=== PATIENT | female | born 1975 | race Caucasian/White ===

== ENCOUNTER → 2017-11-18 | Outpatient (CLI) | payer OTHER ==
--- NOTE | 2017-11-18 15:08 | MM ---
Reason for exam: screening (asymptomatic). Baseline mammogram. History: Patient is nulliparous. Physical Findings: Nurse did not find any significant physical abnormalities on exam. MG Screening Mammo w CAD Bilateral CC and MLO view(s) were taken. The breast tissue is heterogeneously dense. This may lower the sensitivity of mammography. No suspicious abnormality on the left breast. Focal asymmetry anterior depth lower outer quadrant on right breast. These results were verbally communicated with the patient and result sheet given to the patient on 11/18/17. ASSESSMENT: Incomplete: need additional imaging evaluation, BI-RAD 0 RECOMMENDATION: Special view mammogram of the right breast. If lesion persists on supplemental views, image directed ultrasound is recommended. [facility] will attempt to contact patient to return for supplemental views and ultrasound if indicated.
--- NOTE | 2017-11-18 15:10 | MM ---
Reason for exam: additional evaluation requested from abnormal screening. History: Patient is nulliparous. Physical Findings: Breast exam preformed at baseline screening. MG Work Up Mamm w CAD RT Spot compression CC, spot compression MLO, and spot compression LM view(s) were taken of the right breast. The breast tissue is heterogeneously dense. This may lower the sensitivity of mammography. The focal asymmetry improves on additional views and appears as fibroglandular tissue. These results were verbally communicated with the patient and result sheet given to the patient on 11/18/17. ASSESSMENT: Benign, BI-RAD 2 RECOMMENDATION: Return to routine screening mammogram schedule for both breasts.
== END | disposition home or self-care (01) ==
LOC: RADMAMWWP 14:14
PROVIDERS: ATTEND Internal Medicine
DX: Z12.31 Encounter for screening mammogram for malignant neoplasm of breast (principal); R92.8 Other abnormal and inconclusive findings on diagnostic imaging of breast
CPT/HCPCS: 77065; 77067

== ENCOUNTER → 2020-03-03 | Outpatient (CLI) | payer OTHER | END | disposition home or self-care (01) | LOC: LABWHC1 14:11 | PROVIDERS: ATTEND Internal Medicine | DX: Z20.828 Contact with and (suspected) exposure to other viral communicable diseases (principal) | CPT/HCPCS: U0003; C9803 ==

== ENCOUNTER → 2020-04-25 | Outpatient (CLI) | payer OTHER | END | disposition home or self-care (01) | LOC: LABWHC1 16:22 | PROVIDERS: ATTEND Nurse Practitioner Family | DX: Z20.828 Contact with and (suspected) exposure to other viral communicable diseases (principal) | CPT/HCPCS: U0003; C9803 ==

== ENCOUNTER → 2020-12-22 | Outpatient (CLI) | payer OTHER ==
--- NOTE | 2020-12-26 08:19 | MM ---
Reason for exam: screening (asymptomatic). Last mammogram was performed 3 years and 1 month ago. History: Patient is nulliparous. Physical Findings: A clinical breast exam by your physician is recommended on an annual basis and results should be correlated with mammographic findings. MG Screening Mammo w CAD Bilateral CC and MLO view(s) were taken. Prior study comparison: November 18, 2017, right breast MG work up mamm w CAD RT. November 18, 2017, bilateral MG screening mammo w CAD. The breast tissue is heterogeneously dense. This may lower the sensitivity of mammography. No significant changes when compared with prior studies. ASSESSMENT: Benign, BI-RAD 2 RECOMMENDATION: Routine screening mammogram of both breasts in 1 year.
== END | disposition home or self-care (01) ==
LOC: RADMAMWWP 09:37
PROVIDERS: ATTEND Internal Medicine
DX: Z12.31 Encounter for screening mammogram for malignant neoplasm of breast (principal)
CPT/HCPCS: 77067

== ENCOUNTER → 2021-12-27 | Outpatient (CLI) | payer OTHER ==
--- NOTE | 2021-12-28 15:50 | MM ---
Reason for Exam: Screening (asymptomatic). Last screening mammogram was performed 12 month(s) ago. Patient History: Menarche at age 15. Patient has no children. Risk Values: Rivka 5 year model risk: 0.9%. NCI Lifetime model risk: 10.7%. Prior Study Comparison: 11/18/2017 Bilateral Screening Mammogram, [facility]. 11/18/2017 Right Diagnostic Mammogram, [facility]. 12/22/2020 Bilateral Screening Mammogram, [facility]. Tissue Density: The breast tissue is heterogeneously dense. This may lower the sensitivity of mammography. Findings: Analyzed By CAD. Asymmetric nodular density upper-outer left breast zone B. Additional views are recommended. Right breast is free of nodule or distortion. No suspicious calcifications are present. Overall Assessment: Incomplete: need additional imaging evaluation, BI-RAD 0 Management: Diagnostic Mammogram of the left breast. A clinical breast exam by your physician is recommended on an annual basis and results should be correlated with mammographic findings. Electronically signed and approved by: Jeanmarie Cristina M.D. Radiologis
== END | disposition home or self-care (01) ==
LOC: RADMAMWWP 08:17
PROVIDERS: ATTEND Family Medicine
DX: Z12.31 Encounter for screening mammogram for malignant neoplasm of breast (principal)
CPT/HCPCS: 77067

== ENCOUNTER → 2022-01-03 | Outpatient (CLI) | payer OTHER ==
--- NOTE | 2022-01-03 10:58 | MM ---
Reason for Exam: Additional evaluation requested from abnormal screening. Last screening mammogram was performed less than 1 month ago. Patient History: Menarche at age 15. Patient has no children. Last menstrual period: 01/03/2022 Risk Values: Rivka 5 year model risk: 0.9%. NCI Lifetime model risk: 10.7%. Prior Study Comparison: 11/18/2017 Right Diagnostic Mammogram, [facility]. 12/22/2020 Bilateral Screening Mammogram, [facility]. 12/27/2021 Bilateral MG screening mammo w CAD, [facility]. Tissue Density: Left: The breast tissue is heterogeneously dense. This may lower the sensitivity of mammography. Findings: Analyzed By CAD. Nodular density noted measuring 12 mm upper outer quadrant 5 cm from the nipple left breast. Ultrasound is recommended. Overall Assessment: Incomplete: need additional imaging evaluation, BI-RAD 0 Management: Diagnostic Breast Ultrasound of the left breast. A clinical breast exam by your physician is recommended on an annual basis and results should be correlated with mammographic findings. This exam should not preclude additional follow-up of suspicious palpable abnormalities. Results were given to the patient verbally at the time of exam. Electronically signed and approved by: Jeanmarie Cristina M.D. Radiologis
--- NOTE | 2022-01-03 11:51 | USB ---
Reason for Exam: Additional evaluation requested from abnormal screening. Patient History: Menarche at age 15. Patient has no children. Risk Values: Rivka 5 year model risk: 0.9%. NCI Lifetime model risk: 10.7%. Prior Study Comparison: 11/18/2017 Right Diagnostic Mammogram, [facility]. 12/22/2020 Bilateral Screening Mammogram, [facility]. 12/27/2021 Bilateral MG screening mammo w CAD, [facility]. Findings: The upper outer quadrant of the left breast, the axilla of the left breast and the retroareolar of the left breast were scanned. Cluster of cysts noted at the left 2:00 position. Follow-up study is advised. No solid mass detected. Overall Assessment: Probably benign, BI-RAD 3 Management: Diagnostic Mammogram of the left breast in 6 months. A clinical breast exam by your physician is recommended on an annual basis and results should be correlated with mammographic findings. Electronically signed and approved by: Jeanmarie Cristina M.D. Radiologis
== END | disposition home or self-care (01) ==
LOC: RADMAMWWP 10:18
PROVIDERS: ATTEND Family Medicine
DX: R92.8 Other abnormal and inconclusive findings on diagnostic imaging of breast (principal)
CPT/HCPCS: 77065

== ENCOUNTER → 2022-02-09 | Outpatient (CLI) | payer OTHER ==
[2022-02-09 16:54] LABS: HCG,Quantitative Serum <3.0 (0.0-6.0); Luteinizing Hormone 3.8 mIU/mL
== END | disposition home or self-care (01) ==
LOC: LABWHC1 08:30
DX: Z00.00 Encounter for general adult medical examination without abnormal findings (principal)
CPT/HCPCS: 36415; 83002; 84144; 84702

== ENCOUNTER → 2022-08-08 | Outpatient (CLI) | payer OTHER ==
--- NOTE | 2022-08-08 07:34 | MM ---
Reason for Exam: Follow-up at short interval from prior study. Last screening mammogram was performed 7 month(s) ago. Patient History: Menarche at age 15. Patient has no children. Last menstrual period: 07/31/2022 Risk Values: Rivka 5 year model risk: 0.9%. NCI Lifetime model risk: 10.6%. Tissue Density: The breast tissue is heterogeneously dense. This may lower the sensitivity of mammography. Findings: Analyzed By CAD. Areas of asymmetric density at anterior depth on the MLO view remain unchanged. The previous 2-3 o'clock focal asymmetry appears to have resolved. Ultrasound reassessment recommended. Overall Assessment: Incomplete: need additional imaging evaluation, BI-RAD 0 Management: Diagnostic Breast Ultrasound of the left breast. Electronically signed and approved by: Marques Soriano M.D. Radiologist
--- NOTE | 2022-08-08 08:10 | USB ---
Reason for Exam: Additional evaluation requested from abnormal screening. Patient History: Menarche at age 15. Patient has no children. Risk Values: Rivka 5 year model risk: 0.9%. NCI Lifetime model risk: 10.6%. Technique: Method: Targeted. Prior Study Comparison: 12/22/2020 Bilateral Screening Mammogram, [facility]. 12/27/2021 Bilateral MG screening mammo w CAD, [facility]. 01/03/2022 Left MG work up mamm w CAD LT, [facility]. Findings: The upper outer quadrant of the left breast, the axilla of the left breast and the retroareolar of the left breast were scanned. Targeted ultrasound left breast upper outer quadrant 12:00 to 3:00 including the subareolar region and axilla. The previous 2:00 suspicious cluster has resolved. No other solid or cystic lesion or axillary lymphadenopathy. Overall Assessment: Negative, BI-RAD 1 Management: Screening Mammogram of both breasts in 5 months. 1. Patient should continue monthly self breast exams. 2. A clinical breast exam by your physician is recommended on an annual basis. 3. This exam should not preclude additional follow-up of suspicious palpable abnormalities. Electronically signed and approved by: Marques Soriano M.D. Radiologist
== END | disposition home or self-care (01) ==
LOC: RADMAMWWP 07:00
PROVIDERS: ATTEND Obstetrics & Gynecology
DX: R92.8 Other abnormal and inconclusive findings on diagnostic imaging of breast (principal)
CPT/HCPCS: 77061; 77065

== ENCOUNTER 2022-11-22 04:36 | Emergency (ER) | payer OTHER ==
[2022-11-22 04:45] VITALS: TEMP 98.2
[2022-11-22] MEDS ORDERED: MORPHINE SULFATE 4 MG/ML SYRINGE IV STA ×2 (05:01→06:34)
[2022-11-22] MEDS ORDERED: PROPOFOL 10 MG/ML 20 ML VIAL IV ONE (05:01)
--- NOTE | 2022-11-22 05:33 | ED ---
General Adult HPI - General Chief complaint: Extremity Injury, Lower Stated complaint: Ankle Injury Time Seen by Provider: 11/22/22 04:40 Source: EMS Mode of arrival: EMS Limitations: no limitations - History of Present Illness Initial comments: Dictation was produced using [employer] dictation software. please excuse any grammatical, word or spelling errors. Chief Complaint: 47-year-old female presents with ankle injury History of Present Illness: She is 47-year-old female presents emergency Department with right ankle injury. She missed a step and landed her to pop and immediately felt right ankle pain. Patient has a history of orthopedic issues. Denies any medical problems. She has history of one kidney. Denies any numbne ss that foot The ROS documented in this emergency department record has been reviewed and confirmed by me. Those systems with pertinent positive or negative responses have been documented in the HPI. All other systems are other negative and/or noncontributory. - Related Data Allergies Allergy/AdvReac Type Severity Reaction Status Date / Time No Known Allergies Allergy Verified 11/22/22 04:45 Review of Systems ROS Statement: Those systems with pertinent positive or pertinent negative responses have been documented in the HPI. ROS Other: All systems not noted in ROS Statement are negative. Past Medical History Past Medical History: Renal Disease General Exam - General Exam Comments Initial Comments: PHYSICAL EXAM: General Impression: Alert and oriented x3, acute distress secondary to pain HEENT: Normocephalic atraumatic, extra-ocular movements intact, pupils equal and reactive to light bilaterally, mucous membranes moist. Cardiovascular: Heart regular rate and rhythm Chest: Able to complete full sentences, no retractions, no tachypnea Musculoskeletal: Pulses present and equal in all extremities, no peripheral edema Motor: no focal deficits noted Neurological: CN II-XII grossly intact, no focal motor or sensory deficits noted Skin: Intact with no visualized rashes Psych: Normal affect and mood Right ankle: No gross deformity with lateral displacement of the right foot in relation to the tibia. No exposed bone or skin defect Limitations: no limitations Course Vital Signs 11/22/22 11/22/22 11/22/22 04:41 05:12 05:15 Temperature 98.2 F Pulse Rate 74 64 58 L Respiratory 18 18 18 Rate Blood Pressure 118/80 105/68 106/63 O2 Sat by Pulse 97 100 100 Oximetry 11/22/22 11/22/2223 05:16 05:31 05:46 Temperature Pulse Rate 57 L 61 58 L Respiratory 16 18 16 Rate Blood Pressure 107/82 109/69 125/98 O2 Sat by Pulse 100 100 100 Oximetry 11/22/22 06:00 Temperature Pulse Rate 58 L Respiratory 20 Rate Blood Pressure 124/72 O2 Sat by Pulse 98 Oximetry - Reevaluation(s) Reevaluation #1: 11/22/22 06:05 Case was discussed with Dr. Kumar [facility] for orthopedic surgery states that he would like the patient be discharged follow-up in his office at 8:00 AM today. Patient reevaluated bedside with improved condition. 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, Site Site: right ankle Final Confirmation: Procedure - Orthopedic Fracture Reduction Fracture #1 Consent Obtained: verbal consent, written consent Side: right Fracture Reduction Location: other (ankle) Analgesia: procedural sedation Technique: direct manipulation Post Reduction X-rays Demonstrate: anatomical reduction Post-Reduction Neuro Exam: intact Post-Reduction Vascular Exam: intact Splint Applied: Yes Patient Tolerated Procedure: well - Procedural Sedation *Procedural Sedation Start Time: 05:12 *Procedural Sedation Stop Time: 05:15 *Previous Adverse Reaction to Anesthesia/Sedation?: No * Testing Complete?: No Reason Test Not Complete:: Emergent Situation *ASA Class: I *Mallampati Airway Score: 2 Preparation: monitor and storage bin tender applied, pulse oximeter, capnometry used, supplemental O2 applied IV Propofol Dose (mgs): 50 Complications: none Patient Tolerated Procedure: well Medical Decision Making - Medical Decision Making Was pt. sent in by a medical professional or institution (, PA, ICT TEACHER, urgent care, hospital, or long term...) When possible be specific @ -No Did you speak to anyone other than the patient for history (EMS, parent, family, police, friend...)? What history was obtained from this source @ -EMS Did you review nursing and triage notes (agree or disagree)? Why? @ -I reviewed and agree with nursing and triage notes Were old charts reviewed (outside hosp., previous admission, EMS record, old EKG, old radiological studies, urgent care reports/EKG's, long term records)? Report findings @ -No old charts were reviewed Differential Diagnosis (chest pain, altered mental status, abdominal pain women, abdominal pain men, vaginal bleeding, musculoskeletal, weakness, fever, dyspnea, syncope, headache, dizziness, GI bleed, back pain, seizure, CVA, palpatations, mental health)? @ -not applicable EKG interpreted by me (3pts min.). @ -None done X-rays interpreted by me (1pt min.). @ -Initial right ankle x-ray showed fracture dislocation. Repeat postreduction x-ray shows improved alignment CT interpreted by me (1pt min.). @ -None done U/S interpreted by me (1pt. min.). @ -None done What testing was considered but not performed or refused? (CT, X-rays, U/S, labs)? Why? @ -None What meds were considered but not given or refused? Why? @ -None Did you discuss the management of the patient with other professionals (professionals i.e. , PA, ICT TEACHER, lab, RT, psych nurse, social media community manager, cribber, teacher, purchasing officer, case briefer)? Give summary @ -See above. X-rays clinical presentation discussed with Dr. Kumar Was smoking cessation discussed for >3mins.? @ -No Was critical care preformed (if so, how long)? @ -No Were there social determinants of health that impacted care today? How? (Homelessness, low income, unemployed, alcoholism, drug addiction, transportation, low edu. Level, literacy, decrease access to med. care, retirement, rehab)? @ -No Was there de-escalation of care discussed even if they declined (Discuss DNR or withdrawal of care, Hospice)? DNR status @ -No What co-morbidities impacted this encounter? (DM, HTN, Smoking, COPD, CAD, Cancer, CVA, ARF, Chemo, Hep., AIDS, mental health diagnosis, sleep apnea, morbid obesity)? @ -None Was patient admitted / discharged? Hospital course, mention meds given and route, prescriptions, significant lab abnormalities, going to OR and other pertinent info. @ -47-year-old female presents to the emergency department with fracture dislocation of the right ankle. All signs upon arrival are within acceptable limits. Patient underwent procedural sedation for fracture dislocation reduction. Case discussed with orthopedic surgery. He would like to see patient in the office at 8:00 AM Undiagnosed new problem with uncertain prognosis? @ -No Drug Therapy requiring intensive monitoring for toxicity (Heparin, Nitro, Insulin, Cardizem)? @ -No Were any procedures done? @ -See above Diagnosis/symptom? Acute, or Chronic, or Acute on Chronic? Uncomplicated (without systemic symptoms) or Complicated (systemic symptoms)? @ -1. Fracture dislocation to the right ankle Side effects of treatment? @ -No Exacerbation, Progression, or Severe Exacerbation? @ -No Poses a threat to life or bodily function? How? (Chest pain, [place], [place], pneumonia, PE, COPD, DKA, ARF, appy, cholecystitis, CVA, Diverticulitis, Homicidal, Suicidal, threat to staff... and all critical care pts) @ -yes Disposition Clinical Impression: Ankle fracture Disposition: HOME SELF-CARE Condition: Fair Instructions (If sedation given, give patient instructions): Ankle Fracture (ED), Moderate Sedation (ED) Additional Instructions: Go directly to Dr. Kumar's office. He would like to see you at 8an Is patient prescribed a controlled substance at d/c from ED?: No Referrals: Carl Kumar MD [STAFF PHYSICIAN] - 11/22/22 8:00 am Time of Disposition: 06:08
[2022-11-22 06:18] VITALS: RESP 18
[2022-11-22 06:51] VITALS: BP 106/66; PULSE 60
--- NOTE | 2022-11-22 07:06 | XR ---
EXAMINATION TYPE: XR ankle limited RT DATE OF EXAM: 11/22/2022 5:36 AM INDICATION: Patient age:Female; 47 years old; Reason for study: post reduction; COMPARISON: Prereduction TECHNIQUE: The right ankle is imaged in frontal, lateral and oblique projections. FINDINGS/IMPRESSION: : Interval reduction with splint in place. There is improved anatomic alignment of the tibia and fibula fractures. No new fractures. Soft tissue swelling around the ankle. Dislocation has been reduced.
--- NOTE | 2022-11-22 07:10 | XR ---
EXAMINATION TYPE: XR ankle limited RT DATE OF EXAM: 11/22/2022 4:57 AM INDICATION: Patient age:Female; 47 years old; Reason for study: ankle injury; COMPARISON: None TECHNIQUE: The right ankle is imaged in frontal, lateral and oblique projections. FINDINGS/IMPRESSION: Fracture dislocation involving the distal right tibia and fibula with posterior lateral dislocation o f the ankle mortise. Comment fracture of the distal fibula and fractures involving the tibia. There i s soft tissue swelling.
== END 2022-11-22 06:51 | disposition home or self-care (01) ==
LOC: EC 04:36
DX: S82.831A Other fracture of upper and lower end of right fibula, initial encounter for closed fracture (principal); W10.9XXA Fall (on) (from) unspecified stairs and steps, initial encounter
CPT/HCPCS: 73600; 99284; 96374; 96375; 96376; 27840; L4350; J2270; J2704

== ENCOUNTER 2022-11-29 10:00 | Day surgery (SDC) | payer OTHER ==
[2022-11-26 14:35] VITALS: BMI 22.9
[~2022-11-29 10:00] MED LIST: DEXAMETHASONE SOD PHOSPHATE 4 MG/ML 1 ML VIAL IV ONE; HYDROmorphone 0.5 MG/0.5 ML SYRINGE IVP PRN; LACTATED RINGERS 1,000 ML IV SCH; MIDAZOLAM 2 MG/2 ML VIAL IV PRN; ONDANSETRON 4 MG/2 ML VIAL IVP ONE; SCOPOLAMINE 1 MG/72 HR PATCH TRANSDERM ONE
[2022-11-29] MEDS ORDERED: fentaNYL (PF) 50 MCG/ML 2 ML AMP IVP ONE (10:57)
[2022-11-29] MEDS ORDERED: MIDAZOLAM 2 MG/2 ML VIAL IVP ONE (10:57)
[2022-11-29] MEDS ORDERED: DEXAMETHASONE SOD PHOSPHATE 4 MG/ML 1 ML VIAL ONE (11:08)
[2022-11-29] MEDS ORDERED: fentaNYL (PF) 50 MCG/ML 2 ML AMP ONE (11:08)
[2022-11-29] MEDS ORDERED: PROPOFOL 10 MG/ML 20 ML VIAL IV ONE (11:08)
[2022-11-29] MEDS ORDERED: LIDOCAINE 2% INJ 20 MG/ML (2 ML VIAL) ONE (11:08)
[2022-11-29] MEDS ORDERED: ROPIVACAINE 5 MG/ML 30 ML VIAL ONE (11:08)
[2022-11-29] MEDS ORDERED: ePHEDrine 50 MG/ML 1 ML VIAL ONE (11:08)
[2022-11-29] MEDS ORDERED: PHENYLEPHRINE-0.9% NACL SYG 1,000 MCG/10 ML SYRINGE ONE (11:08)
[2022-11-29] MEDS ORDERED: SUCCINYLCHOLINE CHLORIDE 200 MG/10 ML VIAL IV ONE (11:08)
[2022-11-29] MEDS ORDERED: ceFAZolin 1,000 MG in SODIUM CHLORIDE 0.9% 1,000 ML IRRIGATION ONE (11:27)
--- NOTE | 2022-11-29 11:45 | P.ANPRN ---
Procedure Note - Anesthesia - Nerve Block Performed Right Adductor Canal Single Time Out Performed: Yes Date of Procedure: 11/29/22 Procedure Start Time: 10:56 Procedure Stop Time: 11:02 Location of Patient: PreOp Indication: Acute Post-Operative Pain, Requested by Surgeon Sedation Type: Sedate with meaningful contact maintained Preparation: Sterile Prep, Sterile Dressing Position: Supine Catheter: None Needle Types: Facet Needle Gauge: 20 Ultrasound used to visualize needle placement: Yes Ultrasound used to observe medication spread: Yes Injectate: 0.5% Ropivacaine (see comment for volume) (10 ml + decadron 2 mg) Blood Aspirated: No Pain Paresthesia on Injection Noted: No Resistance on Injection: Normal Image Stored and Saved: Yes Events: Uneventful and Well Tolerated Right Popliteal Single Time Out Performed: Yes Date of Procedure: 11/29/22 Procedure Start Time: 11:03 Procedure Stop Time: 11:06 Location of Patient: PreOp Indication: Acute Post-Operative Pain, Requested by Surgeon Sedation Type: Sedate with meaningful contact maintained Preparation: Sterile Prep, Sterile Dressing Position: Supine Catheter: None Needle Types: Facet Needle Gauge: 20 Ultrasound used to visualize needle placement: Yes Ultrasound used to observe medication spread: Yes Injectate: 0.5% Ropivacaine (see comment for volume) (20 ml + decadron 2 mg) Blood Aspirated: No Pain Paresthesia on Injection Noted: No Resistance on Injection: Normal Image Stored and Saved: Yes Events: Uneventful and Well Tolerated
--- NOTE | 2022-11-29 13:13 | XR ---
EXAMINATION TYPE: XR ankle limited RT DATE OF EXAM: 11/29/2022 COMPARISON: NONE TECHNIQUE: 4 views submitted HISTORY: Post op FINDINGS: There is intraoperative surgical changes compatible with open reduction internal fixation of fracture s of the tibia and fibula. IMPRESSION: 1. See above
--- NOTE | 2022-11-29 13:14 | FL ---
EXAMINATION TYPE: FL guidance operating room DATE OF EXAM: 11/29/2022 HISTORY: Fluoroscopy time Total dose area product (DAP) in uGy*m?, mGy*cm? (or similar): 2.181 IMPRESSION: 1. Fluoroscopy time.
[2022-11-29 13:35] VITALS: TEMP 97.1
--- NOTE | 2022-11-29 14:15 | P.OP ---
Date of Procedure: 11/29/22 Preoperative Diagnosis: Displaced trimalleolar fracture right ankle Ruptured syndesmosis right ankle Postoperative Diagnosis: 1 same 2 same Procedure(s) Performed: 1. Open reduction with internal fixation right trimalleolar ankle fracture 2. Open repair syndesmosis right ankle Implants: Arthrex titanium ankle fracture plates: Posterior lateral malleolar plate, posterior malleolus plate, 4.0 cannulated screws medial malleolus Anesthesia: GETA Estimated Blood Loss (ml): 30 Pathology: none sent Condition: stable Disposition: PACU Description of Procedure: Prior to the patient being brought to the operating room, anesthesia administered nerve block on the right lower extremity. Then the patient brought into the operating room. Timeout was taken to confirm correct patient identifiers, correct laterally surgery, and correct procedure. When the staff in the room were in agreement with the timeout, the patient was placed under general anesthesia. The patient is a rolled onto the operating table in the prone position. The tourniquet was placed on the right thigh. Then the right leg was prepped and draped usual manner. The leg was exsanguinated and tourniquet inflated to 250 motors mercury. Attention was directed over the posterior lateral ankle between the peroneal tendons and Achilles tendon. Incision was made starting at superior border the calcaneus. It was deepened down to the saphenous tissue careful to identify, avoid, and retract any neurovascular structures and cauterize any bleeding vessels. Dissection was carried down to the fascia overlying deep posterior muscle compartment. The fascia was incised and then the septum between the muscles muscles was divided and retracted medially and laterally. This allowed for exposure the posterior aspect of the weightbearing surface of the tibia. Soft tissue and hematoma were evacuated from between the fracture fragments. Under live fluoroscopy a bone hook was used to reduce the fracture, and once anatomically reduced, a wire was placed through the fracture fragment into the tibia to maintain alignment. A posterior malleolar plate was then positioned over the fracture and adjusted under live fluoroscopy. Once position of the plate was satisfactory both on AP and lateral views, temporary fixation was used to hold the plate in place. The screw was placed through the plate proximal to the fracture to compress the plate against the tibia and act as anti-glide mechanism for the fracture. Fluoroscopy confirmed the proper positioning of the plate and screw as well as anatomic reduction of the fracture fragment. 2 interfragmentary screws were placed through the plate at the most distal aspect from posterior to anterior, taking care to not enter the ankle joint. The screws had a firm hold on the bone and compressed the fracture well. Fluoroscopy confirmed near anatomic alignment of the fracture and maintain contour the ankle joint. Then attention was directed the posterior aspect lateral malleolus. The peroneal tendons were carefully dissected off the posterior aspect of the lateral malleolus and fibula. The fracture was identified and hematoma and soft tissue were removed. The fracture was manipulated and aligned and then temporarily fixated. Fluoroscopy confirmed the realignment of the fracture and restore length of the fibula. A posterior lateral malleolar plate was positioned and adjusted under fluoroscopy until it was properly aligned. Was then temporarily fixated distally and proximally. Proximal locking screws were placed first and then distal locking and nonlocking screws were placed second. Final fluoroscopic imaging showed anatomic alignment of the lateral malleolar fracture with proper placement of the hardware. Attention directed over the left medial malleolus where a curvilinear incision was made over the area of the fracture. His deepened down the saphenous tissue careful to identify, avoid, and retract any neurovascular structures cauterize any bleeding vessels. The fracture fragment was easily identified and any interposing hematoma or soft tissue was removed. The wound is then thoroughly irrigated with antibiotic saline. The fracture was aligned and held in place with a bone clamp. Fluoroscopy confirmed the proper alignment of the medial malleolar fragment. Guidewires for 4.0 cannulated screws were inserted at the tip of the medial malleolus and advanced on an upward and lateral ankle into the tibia. Fluoroscopy confirmed the proper reduction trajectory of the screws as well as maintain alignment of the fracture. Drilling through the distal fragment was done and then a 4.0 cancellous screw was inserted across each wire and advanced and tightened until a compressed the fracture. Fluoroscopic imaging showed anatomic alignment the medial malleolar fracture in AP and lateral views. The ankle was taken through stress testing while under live fluoroscopy. There was significant gapping in the stability of the syndesmosis. Therefore the decision for syndesmotic repair was made. The plate on the posterior lateral malleolus had a hole and it does elevated for syndesmotic fixation. A guidewire for a tight rope was then placed through that hole and advanced from lateral to medial with slight anterior angulation. Fluoroscopy confirmed the proper position of the guidewire in AP and lateral views. Overdrill it was done until the medial cortex of the tibia was breached. The wire drill removed and then the tight rope anchor was inserted until the button was clear to the medial tibial cortex. The button was then deployed and tension was placed on the suture to lie the button flat against the tibial cortex. A large periarticular clamp was then used to reduce the the syndesmosis while holding the ankle maximally dorsiflexed. With the ankle still in maximum dorsiflexion the lateral button for the tight rope was then tied down to the plate and tightened until firm. Live fluoroscopy was repeated, and there was no longer any instability at the syndesmosis. The suture for the tight rope was then cut and all wounds were thoroughly irrigated with antibiotic saline. Deep closure of the posterior incision was done with 0 Vicryl. Subcu closure done for Monocryl. Skin closure done with anderson. The medial incision was closed with 4-0 Monocryl the subcutaneous layer and anderson at the skin. An Arthrex jumpstart dressing was placed over both incisions. A dry sterile dressings applied to the ankle. The tourniquet was released capillary refill return to all digits on the foot. The patient was then placed in a well-padded, well molded plaster posterior mold/sugar tong splint. The ankle was held in neutral alignment until the splint was dried. The patient was then rolled into the supine position on the transfer table. Anesthesia was reversed and she was taken recovery with vital signs stable.
[2022-11-29 14:36] VITALS: RESP 18
[2022-11-29] MEDS ORDERED: ONDANSETRON 4 MG/2 ML VIAL ONE (16:15)
[2022-11-29] MEDS ORDERED: ONDANSETRON 4 MG/2 ML VIAL IVP ONE (16:20)
[2022-11-29 16:51] VITALS: BP 99/63; PULSE 68
== END 2022-11-29 16:52 | disposition home or self-care (01) ==
LOC: OR 10:00
PROVIDERS: ATTEND Podiatrist
DX: S82.851A Displaced trimalleolar fracture of right lower leg, initial encounter for closed fracture (principal); S93.491A Sprain of other ligament of right ankle, initial encounter; W13.9XXA Fall from, out of or through building, not otherwise specified, initial encounter; K21.9 Gastro-esophageal reflux disease without esophagitis; Z79.1 Long term (current) use of non-steroidal anti-inflammatories (NSAID); G89.18 Other acute postprocedural pain
CPT/HCPCS: 27822; 27829; 64447; 64445; 84703; 73600; C1713; J2250; J0330; J1100; J0690 ×2; J2405; J3010; J2795; J2704; J1170; J2001

== ENCOUNTER → 2023-04-17 | Outpatient (CLI) | payer OTHER ==
--- NOTE | 2023-04-18 13:52 | MM ---
Reason for Exam: Screening (asymptomatic). Last screening mammogram was performed 8 month(s) ago. Patient History: Menarche at age 15. Patient has no children. Risk Values: Rivka 5 year model risk: 0.9%. NCI Lifetime model risk: 10.6%. Prior Study Comparison: 12/27/2021 Bilateral MG screening mammo w CAD, [facility]. 01/03/2022 Left MG work up mamm w CAD LT, [facility]. 08/08/2022 Bilateral MG 3D diag mammo w/cad ELIZABETH, [facility]. Tissue Density: The breast tissue is heterogeneously dense. This may lower the sensitivity of mammography. Findings: Analyzed By CAD. Left breast: There is no suspicious group of microcalcifications or new suspicious mass. Right breast: Focal asymmetry 2.2 cm from nipple and slightly lateral anterior depth measuring 11 mm on CC view and 3.0 cm from nipple measuring 10 mm at inferior MLO view. Overall Assessment: Incomplete: need additional imaging evaluation, BI-RAD 0 Management: Diagnostic Breast Ultrasound of the right breast. [facility] will attempt to contact patient to return for supplemental views and ultrasound if indicated. Patient should continue monthly self-breast exams. A clinical breast exam by your physician is recommended on an annual basis. This exam should not preclude additional follow-up of suspicious palpable abnormalities. Note on Rivka scores and lifetime risk: 1. A Rivka score greater than 3% is considered moderate risk. If this is the case, consider specialist referral to assess eligibility for a risk reducing agent. 2. If overall lifetime risk for the development of breast cancer is 20% or higher, the patient may qualify for future screening with alternating mammogram and breast MRI. Electronically signed and approved by: Jose Juan Dong DO
== END | disposition home or self-care (01) ==
LOC: RADMAMWWP 08:26
PROVIDERS: ATTEND Family Medicine
DX: Z12.31 Encounter for screening mammogram for malignant neoplasm of breast (principal)
CPT/HCPCS: 77063; 77067

== ENCOUNTER → 2023-04-23 | Outpatient (CLI) | payer OTHER ==
--- NOTE | 2023-04-23 14:44 | USB ---
Reason for Exam: Additional evaluation requested from abnormal screening. Patient History: Menarche at age 15. Patient has no children. Risk Values: Rivka 5 year model risk: 0.9%. NCI Lifetime model risk: 10.6%. Technique: Method: Targeted. Prior Study Comparison: 01/03/2022 Left MG work up mamm w CAD LT, [facility]. 08/08/2022 Bilateral MG 3D diag mammo w/cad ELIZABETH, [facility]. 04/17/2023 Bilateral MG 3D screening mammo w/cad, [facility]. Findings: The lateral section of the breast of the right breast, the axilla of the right breast and the retroareolar of the right breast were scanned. Pattern appears stable. Focal asymmetry remains subareolar right breast. Ultrasound evaluation. No suspicious groups of microcalcifications, spiculated or lobular masses, architectural distortion or other secondary signs of malignancy are mammographically apparent. Overall Assessment: Incomplete: need additional imaging evaluation, BI-RAD 0 Management: Diagnostic Breast Ultrasound of the right breast. A negative mammogram report should not preclude additional follow up of suspicious palpable abnormalities. Patient should continue monthly self breast exam. A clinical breast exam by your physician is recommended on an annual basis and results should be correlated with mammographic findings. Electronically signed and approved by: Zelalem Yancey D.O. Radiologis
== END | disposition home or self-care (01) ==
LOC: RADUSWWP 13:38
PROVIDERS: ATTEND Family Medicine
DX: R92.8 Other abnormal and inconclusive findings on diagnostic imaging of breast (principal)

== ENCOUNTER 2023-04-25 08:15 | Day surgery (SDC) | payer OTHER ==
[2023-04-24 10:13] VITALS: BMI 23.9
[2023-04-25] MEDS ORDERED: LACTATED RINGERS 1,000 ML IV SCH (08:27)
[2023-04-25 08:56] VITALS: TEMP 97.9
[2023-04-25] MEDS ORDERED: ONDANSETRON 4 MG/2 ML VIAL ONE (08:58)
[2023-04-25] MEDS ORDERED: PROPOFOL 10 MG/ML 20 ML VIAL IV ONE (08:59)
[2023-04-25] MEDS ORDERED: LIDOCAINE 1% INJ 10MG/ML (20 ML MDV) ONE (08:59)
--- NOTE | 2023-04-25 09:29 | P.PCN ---
Date of Procedure: 04/25/23 Procedure(s) Performed: Brief history: Patient is a pleasant 47-year-old white female scheduled for an elective upper endoscopy as well as colonoscopy as a part of evaluation of intermittent dysphagia to solids and liquids for the last 6 months duration and screening for colon cancer Procedure performed: Esophagogastroduodenoscopy with biopsy Colonoscopy Preoperative diagnosis: Intermittent Dysphagia to solids Screening for colon cancer Anesthesia: MAC Procedure: After informed consent was obtained from the patient was brought into the endoscopy unit and IV sedation was administered by anesthesia under continuous monitoring. Initially upper endoscopy was done. The Olympus GF 160 video endoscope was inserted inserted into the mouth and esophagus intubated without any difficulty and was gradually advanced into the stomach and duodenum and carefully examined. The bulb and second part of the duodenum appeared normal. The scope was then withdrawn into the stomach adequately insufflated with air and upon careful examination the antrum had mild gastritis. Mucosa of the body, cardia and fundus appeared normal. The scope was then withdrawn into the esophagus. The GE junction was located at 40 cm to the incisors. It appeared regular with no erythema erosions or ulcerations. Rest of the esophagus appeared normal. There was no evidence of esophageal stricture. Multiple biopsies were done from mid and distal esophagus to rule out eosinophilic esophagitis and the patient tolerated the procedure well. At this time the patient continued to remain sedation. Initial digital rectal examination was normal. Olympus CF 160 video colonoscope was then inserted into the rectum and gradually advanced to the cecum without any difficulty. Careful examination was performed as the scope was gradually being withdrawn. The prep was excellent. The cecum, ascending colon, transverse colon, descending colon, sigmoid colon and rectum appeared normal. Retroflexion was performed in the rectum and no lesions were noted. Patient tolerated the procedure well. Impression: 1. Upper endoscopy revealed normal-appearing esophagus with no evidence of esophagitis or esophageal stricture status post multiple biopsies to rule out years of age esophagitis and mild antral gastritis and mild gastritis 2. Colonoscopy was within normal limits with no evidence of colitis or colorectal neoplasia Recommendations: Findings of this examination were discussed with the patient as well as her family. She was advised to follow with the biopsy results.. Recommend repeat colonoscopy in 10 years.
[2023-04-25 09:47] VITALS: BP 112/74; PULSE 68; RESP 16
== END 2023-04-25 10:12 | disposition home or self-care (01) ==
LOC: ORWHC2ENDO 08:15
PROVIDERS: ATTEND Internal Medicine Gastroenterology
DX: Z12.11 Encounter for screening for malignant neoplasm of colon (principal); K21.00 Gastro-esophageal reflux disease with esophagitis, without bleeding; K29.50 Unspecified chronic gastritis without bleeding; F12.90 Cannabis use, unspecified, uncomplicated; Z79.899 Other long term (current) drug therapy
CPT/HCPCS: 88305; 45378; 43239; J2001; J2704

== ENCOUNTER → 2023-10-23 | Outpatient (CLI) | payer OTHER ==
--- NOTE | 2023-10-23 09:32 | MM ---
Reason for Exam: Follow-up at short interval from prior study. Last screening mammogram was performed 7 month(s) ago. Patient History: Menarche at age 15. Patient has no children. Last menstrual period: 10/18/2023 Risk Values: Rivka 5 year model risk: 0.9%. NCI Lifetime model risk: 10.5%. Prior Study Comparison: 01/03/2022 Left MG work up mamm w CAD LT, [facility]. 08/08/2022 Bilateral MG 3D diag mammo w/cad ELIZABETH, [facility]. 04/17/2023 Bilateral MG 3D screening mammo w/cad, [facility]. Tissue Density: Right: There are scattered areas of fibroglandular density. Findings: Analyzed By CAD. The questioned area of focal asymmetry anterior depth right breast has not persisted. No significant mass, suspicious microcalcification, or other discrete abnormality is seen. Overall Assessment: Benign, BI-RAD 2 Management: Screening Mammogram of both breasts in 6 months. Back on schedule. Results were given to the patient verbally at the time of exam. Patient should continue monthly self-breast exams. A clinical breast exam by your physician is recommended on an annual basis. This exam should not preclude additional follow-up of suspicious palpable abnormalities. Note on Rivka scores and lifetime risk: 1. A Rivka score greater than 3% is considered moderate risk. If this is the case, consider specialist referral to assess eligibility for a risk reducing agent. 2. If overall lifetime risk for the development of breast cancer is 20% or higher, the patient may qualify for future screening with alternating mammogram and breast MRI. Electronically signed and approved by: Marques Soriano M.D. Radiologist
== END | disposition home or self-care (01) ==
LOC: RADMAMWWP 09:08
PROVIDERS: ATTEND Family Medicine
DX: R92.321 Mammographic fibroglandular density, right breast (principal)
CPT/HCPCS: 77061; 77065

== ENCOUNTER 2024-05-07 09:31 | Day surgery (SDC) | payer OTHER ==
[~2024-05-07 09:31] MED LIST changes: -DEXAMETHASONE SOD PHOSPHATE 4 MG/ML 1 ML VIAL IV ONE; -LACTATED RINGERS 1,000 ML IV SCH; -MIDAZOLAM 2 MG/2 ML VIAL IV PRN; -ONDANSETRON 4 MG/2 ML VIAL IVP ONE; -SCOPOLAMINE 1 MG/72 HR PATCH TRANSDERM ONE
[2024-05-07] MEDS: IV FLUID CONTINUATION 1,000 ML IV ONE ×2 (09:50→15:04)
[2024-05-07] MEDS: LACTATED RINGERS 1,000 ML IV SCH (10:27)
[2024-05-07] MEDS: ONDANSETRON 4 MG/2 ML VIAL IVP ONE (10:27)
[2024-05-07] MEDS: DEXAMETHASONE SOD PHOSPHATE 4 MG/ML 1 ML VIAL IV ONE (10:27)
[2024-05-07] MEDS: SCOPOLAMINE 1 MG/72 HR PATCH TRANSDERM ONE (10:28)
[2024-05-07] MEDS: fentaNYL (PF) 50 MCG/ML 2 ML AMP IVP ONE (10:38)
[2024-05-07] MEDS: MIDAZOLAM 2 MG/2 ML VIAL IV PRN (10:38)
--- NOTE | 2024-05-07 11:47 | P.ANPRN ---
Procedure Note - Anesthesia - Nerve Block Performed Right Popliteal Single Time Out Performed: Yes (1037) Date of Procedure: 05/07/24 Procedure Start Time: 10:38 Procedure Stop Time: 10:41 Location of Patient: PreOp Indication: Acute Post-Operative Pain, Requested by Surgeon Specifically requested for management of pain by DrMiriam: Jf Schmidt Sedation Type: Sedate with meaningful contact maintained Preparation: Sterile Prep Position: Supine Catheter: None Needle Types: Pajunk Needle Gauge: 21 Ultrasound used to visualize needle placement: Yes Ultrasound used to observe medication spread: Yes Injectate: 0.5% Ropivacaine (see comment for volume) (15cc+10cc nacl pf) Blood Aspirated: No Pain Paresthesia on Injection Noted: No Resistance on Injection: Normal Image Stored and Saved: Yes Events: Uneventful and Well Tolerated
--- NOTE | 2024-05-07 11:48 | P.ANPRN ---
Procedure Note - Anesthesia - Nerve Block Performed Right Adductor Canal Single Time Out Performed: Yes (1037) Date of Procedure: 05/07/24 Procedure Start Time: 10:42 Procedure Stop Time: 10:45 Location of Patient: PreOp Indication: Acute Post-Operative Pain, Requested by Surgeon Specifically requested for management of pain by DrMiriam: Jf Schmidt Sedation Type: Sedate with meaningful contact maintained Preparation: Sterile Prep Position: Supine Catheter: None Needle Types: Pajunk Needle Gauge: 21 Ultrasound used to visualize needle placement: Yes Ultrasound used to observe medication spread: Yes Injectate: 0.5% Ropivacaine (see comment for volume) (15cc+10cc nacl pf) Blood Aspirated: No Pain Paresthesia on Injection Noted: No Resistance on Injection: Normal Image Stored and Saved: Yes Events: Uneventful and Well Tolerated
[2024-05-07] MEDS ORDERED: GLYCOPYRROLATE 0.2 MG/ML 2 ML VIAL ONE (12:40)
[2024-05-07] MEDS ORDERED: SODIUM CHLORIDE 0.9% (PF) 10 ML VIAL ONE (12:40)
[2024-05-07] MEDS ORDERED: NEOSTIGMINE 1 MG/ML 10 ML VIAL ONE (12:40)
[2024-05-07] MEDS ORDERED: PHENYLEPHRINE 10 MG/ML VIAL ONE (12:40)
[2024-05-07] MEDS ORDERED: PROPOFOL 10 MG/ML 20 ML VIAL IV ONE (12:40)
[2024-05-07] MEDS ORDERED: ROCURONIUM 10 MG/ML (5 ML VIAL) IV ONE (12:40)
[2024-05-07] MEDS ORDERED: MIDAZOLAM 2 MG/2 ML VIAL ONE (12:40)
[2024-05-07] MEDS ORDERED: ROPIVACAINE 5 MG/ML 30 ML VIAL ONE (12:40)
[2024-05-07] MEDS ORDERED: SUCCINYLCHOLINE CHLORIDE 200 MG/10 ML VIAL IV ONE (12:40)
[2024-05-07] MEDS ORDERED: fentaNYL (PF) 50 MCG/ML 2 ML AMP ONE (12:40)
[2024-05-07] MEDS ORDERED: LIDOCAINE 1% INJ 10MG/ML (20 ML MDV) ONE (12:40)
[2024-05-07] MEDS: ceFAZolin 1,000 MG in SODIUM CHLORIDE 0.9% 1,000 ML IRRIGATION ONE (12:43)
--- NOTE | 2024-05-07 14:04 | P.OP ---
Date of Procedure: 05/07/24 Preoperative Diagnosis: Painful retained hardware right ankle Postoperative Diagnosis: Same Procedure(s) Performed: Removal of deep hardware right ankle Implants: None Anesthesia: HANNAH Surgeon: Jf Schmidt Pathology: none sent Condition: stable Disposition: PACU Description of Procedure: Prior to the patient being brought to the op room, anesthesia administered a nerve block on the operative lower extremity. The patient was brought into the operative room where a timeout was taken to confirm correct patient identifiers, correct laterality of surgery, correct procedure. Once all staff in the room were in agreement the timeout, the patient was induced and placed under general esthesia. Then she was rolled onto the operating table in a prone position. Anesthesia checked the position of the patient and once satisfactory, a well- padded tourniquet was placed on the right thigh. Then the right leg was prepped and draped usual manner. The leg was exsanguinated and the tourniquet inflated to 250 mmHg. Attention directed to the posterior lateral ankle where the previous surgical scar was used as incision placement. The incision was deepened down to the subcutaneous tissue careful to identify, void, and retracting her vascular structures and cauterize any bleeding vessels. Dissection was carried down to the peroneal muscle bellies as well as the flexor hallucis longus muscle belly. The septum between the muscles was divided and reflected medially and laterally to expose the posterior tibial plate as well as a posterior fibular plate with soft tissue elevator was used to remove the soft tissue off of both plates to expose the screws. All screws were engaged and removed intact. Then the plates were freed from the underlying bone and removed intact. The lateral suture button was also freed and removed. The wound was irrigated with antibiotic sali ne. Deep closure was done with 2-0 Vicryl. Subcutaneous closure done with 4-0 Monocryl. And skin closure done with 4-0 Stratafix in a running subcuticular manner. Then attention was directed over the medial malleolus where the previous surgical scar was used for incision placement. The incision was deepened down to the subcutaneous tissue careful to identify, void, and retracting neurovascular structures and cauterize any bleeding vessels. The screw heads were palpable through the deep tissue over the medial malleolus. Small incisions were made over each screw. A guidewire was placed to the cannula of each screw. The screwdriver was placed over the wire and used to engage the screw. The screws were removed intact and without complication. At the superior aspect of the incision was the medial suture button which was identified in the soft tissue freed and removed. Final fluoroscopic imaging showed removal of all hardware in the ankle. The wound was irrigated with antibiotic saline. Deep closure was done with 2-0 Vicryl. Subcutaneous closure done with 4-0 Monocryl. And skin closure done with 4-0 Stratafix in a running subcuticular manner. Dermal glue was placed over both incisions. An Arthrex jumpstart was applied over both incisions. A bulky dry dressing is applied to the ankle. The tourniquet was released and capillary refill returned all digits on the right foot. Anesthesia was reversed and the patient was taken recovery with vital signs stable.
[2024-05-07 14:20] VITALS: TEMP 97.2
[2024-05-07] MEDS: droPERidol 5 MG/2 ML VIAL IVP ONE (14:44)
[2024-05-07 16:12] VITALS: BP 111/71; PULSE 61; RESP 18
== END 2024-05-07 16:58 | disposition home or self-care (01) ==
LOC: OR 09:31
PROVIDERS: ATTEND Podiatrist
DX: M25.571 Pain in right ankle and joints of right foot (principal); T84.84XA Pain due to internal orthopedic prosthetic devices, implants and grafts, initial encounter; Z87.442 Personal history of urinary calculi
CPT/HCPCS: 64447; 64445; 20680; J2250; J0330; J1100; J2710; J0690 ×2; J2405; J2003; J3010; J2795; J2704; J1790; J2371; J1596